=== PATIENT | female | born 1995 | race Caucasian/White ===

== ENCOUNTER → 2017-11-28 | Outpatient (CLI) | payer OTHER ==
[~2017-11-28] MED LIST: CLN.1TRX PO; CYPR4TAB PO; NORG1TAB15 PO; ONDN4T PO; OXCA600T PO; OXCA600T3 PO; RT-ALBUTEROL SULF 2.5 MG/3 ML PRE-MIX VIAL INH ONE; SERT100T8 PO; SRTR100T PO
[2017-11-28 12:46] LABS: BASOPHILS # (AUTO) 0.1 10^3/uL (0.0-0.1); BASOPHILS % (AUTO) 1 % (0-10); EOSINOPHILS # (AUTO) 0.2 10^3/uL (0.0-0.3); EOSINOPHILS % (AUTO) 2 % (0-10); HEMATOCRIT 42 % (35-52); LYMPHOCYTES # (AUTO) 3.3 X 10^3 (1.0-4.0); LYMPHOCYTES % (AUTO) 35 % (12-44); MEAN CORPUSCULAR HEMOGLOBIN 30 PG (25-34); MEAN CORPUSCULAR HGB CONC 36 G/DL (32-36); MEAN CORPUSCULAR VOLUME 85 FL (80-99); MEAN PLATELET VOLUME 9.9 FL (7.4-10.4); MONOCYTES # (AUTO) 0.8 X 10^3 (0.0-1.0); MONOCYTES % (AUTO) 9 % (0-12); NEUTROPHILS # (AUTO) 5.1 X 10^3 (1.8-7.8); NEUTROPHILS % (AUTO) 54 % (42-75); PLATELET COUNT 272 10^3/uL (130-400); RED BLOOD COUNT 4.98 10^6/uL (4.35-5.85); RED CELL DISTRIBUTION WIDTH 12.7 % (10.0-14.5); WHITE BLOOD COUNT 9.5 10^3/uL (4.3-11.0)
[2017-11-28 13:06] LABS: ALANINE AMINOTRANSFERASE 28 U/L (0-55); ALBUMIN 4.9 GM/DL (3.2-4.5); ALKALINE PHOSPHATASE 57 U/L (40-136); BILIRUBIN,TOTAL 0.5 MG/DL (0.1-1.0); BUN/CREATININE RATIO 17; CALCIUM 9.5 MG/DL (8.5-10.1); CARBON DIOXIDE 19 MMOL/L (21-32); CHLORIDE 106 MMOL/L (98-107); CREATININE SERUM 0.72 MG/DL (0.60-1.30); GFR ESTIMATED > 60; GLUCOSE 84 MG/DL (70-105); POTASSIUM 3.8 MMOL/L (3.6-5.0); SODIUM 137 MMOL/L (135-145); TOTAL PROTEIN 8.2 GM/DL (6.4-8.2)
[2017-11-28 13:27] LABS: CARBAMAZEPINE (TEGRETOL) < 2.0 UG/ML (4.0-12.0); FREE T4 (FREE THYROXINE) 1.01 NG/DL (0.70-1.48)
== END ==
LOC: RT 11:29
PROVIDERS: ATTEND Family Medicine
DX: R53.83 Other fatigue (principal); R63.5 Abnormal weight gain; Z79.899 Other long term (current) drug therapy; R05 Cough; J45.909 Unspecified asthma, uncomplicated
CPT/HCPCS: 36415; 80053; 80156; 84439; 84443; 85025; 94060; 94726; 94729

== ENCOUNTER → 2018-01-19 | Outpatient (CLI) | payer OTHER ==
[~2018-01-19] MED LIST changes: +IOHEXOL 350 MG/ML 100 ML (OMNIPAQUE 350) VIAL IV ONE; +NS 250 ML (IVPB) BAG IV ONE; +RECEIVED CONTRAST (Hold Metformin) IV SCH; -RT-ALBUTEROL SULF 2.5 MG/3 ML PRE-MIX VIAL INH ONE
--- NOTE | 2018-01-19 15:59 | Diagnostic Imaging Report ---
PROCEDURE: CT chest with contrast only. TECHNIQUE: Multiple contiguous axial images were obtained through the chest after administration of intravenous contrast. INDICATION: Chronic cough for 14 months. Dyspnea. COMPARISON: None. FINDINGS: The heart is normal in size. There is significant pectus excavatum deformity, which causes mass effect on the anterior right ventricular wall. No pericardial effusion is seen. There is no mediastinal adenopathy seen. No hilar adenopathy is seen. There is no axillary adenopathy. No pulmonary consolidation is seen. There is no pleural effusion or pneumothorax. No masses are seen. No central endobronchial lesions are seen. No acute osseous abnormality is seen. Cholecystectomy clips are noted. A splenule is seen. IMPRESSION: 1. No acute pulmonary abnormality is seen. 2. Pectus excavatum, causing mild mass effect on the anterior right ventricular wall. Dictated by: Dictated on workstation # [id number]
== END ==
LOC: RAD 13:14
PROVIDERS: ATTEND Nurse Practitioner Family
DX: Q67.6 Pectus excavatum (principal); R91.8 Other nonspecific abnormal finding of lung field; R06.00 Dyspnea, unspecified; R05 Cough
CPT/HCPCS: 71260